=== PATIENT | female | born 1985 | race Caucasian/White ===

== ENCOUNTER → 2021-10-17 12:40 | Outpatient (CLI) | payer OTHER, SELFPAY ==
[2021-10-17 14:53] LABS: Free T3, Triiodothyronine Free 3.52 pg/mL (2.77-5.27); Free T4, Direct Thyroxine 1.38 ng/dL (0.78-2.19)
[2021-10-17 15:07] LABS: Thyroid Stimulating Hormone 0.454 uIU/mL (0.47-4.68)
== END ==
PROVIDERS: Referring Provider Family Medicine; Visit Provider Family Medicine
DX: E03.9 Hypothyroidism, unspecified (principal)
CPT/HCPCS: 36415; 84439; 84443; 84481